=== PATIENT | female | born 1995 | race Caucasian/White ===

== ENCOUNTER 2017-11-04 17:33 | Emergency (ER) | payer OTHER ==
[2017-11-04] MEDS ORDERED: Gelfoam 12-7 ADSORBABL SPONGE* 1 EA SPONGE TOPICAL ONE (17:39)
[2017-11-04] MEDS ORDERED: Tetan/Diph/Pertus SYR(Tdap)* 0.5 ML SYR(BOOSTRIX) use SYR IM ONE (17:39)
--- NOTE | 2017-11-04 17:45 | UC ---
Laceration HPI - HPI Summary HPI Summary: Cut tip of left thumb while chopping onions about 30 minutes ago. Pt is concerned because it hasn't stopped bleeding yet. Unsure of last tdap, denies immune problems. - History Of Current Complaint Stated Complaint: FINGER INJURY Time Seen by Provider: 11/04/17 17:39 Hx Obtained From: Patient Laceration Location: Finger Mechanism Of Injury: Sharp Trauma Onset/Duration: Sudden Onset, Lasting Hours Aggravating Factors: Nothing Related History: Dominant Hand Right - Allergies/Home Medications Allergies/Adverse Reactions: Allergies Allergy/AdvReac Type Severity Reaction Status Date / Time No Known Allergies Allergy Verified 11/04/17 17:49 Home Medications: Home Medications NK [No Home Medications Reported] 11/04/17 [History Confirmed 11/04/17] PMH/Surg Hx/FS Hx/Imm Hx Previously Healthy: Yes - Family History Known Family History: Negative: Blood Disorder - Social History Occupation: Employed Full-time - temp at [employer] Lives: Alone Substance Use Type: None Smoking Status (MU): Never Smoked Tobacco - Immunization History Hx Tetanus, Diphtheria Vaccination: Yes - 2009? Review of Systems Constitutional: Negative Skin: Other - L thumb cut Eyes: Negative ENT: Negative Respiratory: Negative Cardiovascular: Negative Gastrointestinal: Negative Genitourinary: Negative Motor: Negative Neurovascular: Negative Musculoskeletal: Negative Neurological: Negative Psychological: Negative Is Patient Immunocompromised?: No All Other Systems Reviewed And Are Negative: Yes Physical Exam Triage Information Reviewed: Yes Appearance: Well-Appearing, No Pain Distress, Well-Nourished Vital Signs Reviewed: Yes Eye Exam: Normal Eyes: Positive: Conjunctiva Clear ENT Exam: Normal ENT: Positive: Normal ENT inspection, Hearing grossly normal, Pharynx normal, TMs normal. Negative: TM bulging, TM dull, TM red Dental Exam: Normal Neck exam: Normal Neck: Positive: Supple, Nontender, No Lymphadenopathy Respiratory Exam: Normal Respiratory: Positive: Chest non-tender, Lungs clear, Normal breath sounds, No respiratory distress, No accessory muscle use Cardiovascular Exam: Normal Cardiovascular: Positive: RRR, No Murmur Musculoskeletal Exam: Normal Neurological Exam: Normal Neurological: Positive: Alert Psychological Exam: Normal Skin Exam: Other - 1/2cm x 1/2cm avulsion to tip of L thumb, some bleeding, no FB noted Laceration Course/Dx - Differential Dx - Laceration/Wound Provider Diagnoses: L thumb skin avulsion. no wound repair, gelfoam only Discharge - Discharge Plan Condition: Stable Disposition: HOME Patient Education Materials: Skin Avulsion (ED) Referrals: No Primary Care Phys,NOPCP [Primary Care Provider] - Additional Instructions: Remove the outer gauze and soak the dressing off in 36 hours. You can use a regular bandaid as needed, though if it is not tender or draining you don't need to bandage it at all.
[2017-11-04 17:49] VITALS: BP 146/77
== END 2017-11-04 18:10 | disposition home or self-care (01) ==
LOC: UCEAST 17:33
DX: S61.002A Unspecified open wound of left thumb without damage to nail, initial encounter (principal); W26.0XXA Contact with knife, initial encounter; Y93.G3 Activity, cooking and baking; Y92.000 Kitchen of unspecified non-institutional (private) residence as the place of occurrence of the external cause
CPT/HCPCS: 90715; 99202; A9270-GY; G0463